=== PATIENT | female | born 1960 | race Caucasian/White ===

== ENCOUNTER 2020-06-04 01:38 | Outpatient (CLI) | payer OTHER, SELFPAY ==
--- NOTE | 2020-06-04 | DI.MAMMO_ITS ---
EXAM: MG MAMMO SCREENING CLINICAL HISTORY: SCREENING FOR BREAST CANCER Z12.39 TECHNIQUE: Bilateral full field digital CC and MLO mammographic images were obtained with 3D tomosyn thesis and utilizing computer aided detection (CAD). COMPARISON: None. This is a baseline examination. FINDINGS: Masses/Architectural Distortion: None seen. Microcalcifications: No suspicious pleomorphic-type are seen. Skin Thickening/Nipple Retraction: None. IMPRESSION: 1. No significant interval change with no specific features of malignancy noted. 2. Unless there is more urgent need, screening mammography is recommended, as per [employer] guidelines. BI-RADS Category 1 - Negative Breast Density - Category B - Scattered areas of fibroglandular density Breast density category C or D implies that the patient has dense breast tissue. Dense breast tissue is very common and is not abnormal but dense breast tissue can make it harder to find cancer on a ma mmogram. Also, dense breast tissue may increase their breast cancer risk. This information about the result of the mammogram report was provided to the patient to raise their awareness. Use this report when you speak with the patient about their risks for breast cancer, which includes their family hist ory. At that time, you may recommend for more screening tests (Ultrasound or MRI) as they might be us eful based on their risk. A negative radiographic report should not delay biopsy if a dominant or clinically suspicious mass is present. Up to ten percent of cancers are not identified on mammography. A negative report may reinforce clinical impression. Adenosis and dense breasts may obscure an underlying neoplasm. False positive reports average 6 to 10%. Patient will receive a letter notifying them of these results.
== END 2020-06-04 01:39 | disposition home or self-care (01) ==
LOC: DI 01:38
PROVIDERS: PCP Nurse Practitioner Family; Visit Provider Nurse Practitioner Family
DX: Z12.31 Encounter for screening mammogram for malignant neoplasm of breast (principal)
CPT/HCPCS: 77063; 77067

== ENCOUNTER 2021-03-22 13:21 | Outpatient (REF) | payer BC, SELFPAY ==
--- NOTE | 2021-03-22 11:30 | PAPFT_PTH ---
PATIENT: Alfredito Chandra LOC: [facility]#:[id number] AGE/SX: 61/F ROOM: RE03/22/[address]: Fatmata Damon : 1960 BED: DIS: 03/22/2021 SPEC #: [id number] RECD: 03/25/21 13:03 STATUS: [place] REAlfonso #: [id number] SUNIL: 03/22/21 11:[address]: Fatmata Damon DEPT: [facility] Cytology RECD BY: Komal Pratt Tissues: 1 - CX/ENDOCX FOR PAP SMEARS Procedures: PAP THIN PREP/UVM Screening HPV DNA PROBE Comments: [id number]
[2021-03-22 17:29] LABS: Calculated LDL 142 mg/dL (<100); Cholesterol 236 mg/dL (<200); HDL Cholesterol 76 mg/dL (40-60); Triglyceride 91 mg/dL (<150)
[2021-03-22 18:04] LABS: Hemoglobin A1C 5.4 % (<5.7)
[2021-03-22 22:37] LABS: T3,Free 2.9 pg/mL (2.8-5.3)
== END 2021-03-22 13:22 | disposition home or self-care (01) ==
LOC: NCHCN 13:21
PROVIDERS: PCP Nurse Practitioner Family; Visit Provider Nurse Practitioner Family
DX: I83.90 Asymptomatic varicose veins of unspecified lower extremity (principal); K80.20 Calculus of gallbladder without cholecystitis without obstruction; N39.3 Stress incontinence (female) (male); F33.0 Major depressive disorder, recurrent, mild; Z80.0 Family history of malignant neoplasm of digestive organs; Z12.4 Encounter for screening for malignant neoplasm of cervix; Z11.51 Encounter for screening for human papillomavirus (HPV); R87.610 Atypical squamous cells of undetermined significance on cytologic smear of cervix (ASC-US); E66.9 Obesity, unspecified; Z00.00 Encounter for general adult medical examination without abnormal findings
CPT/HCPCS: 80061; 88142; 83036; 84481; 87624

== ENCOUNTER 2022-05-02 15:51 | Outpatient (REF) | payer OTHER, SELFPAY ==
--- NOTE | 2022-05-02 14:15 | PAPFT_PTH ---
PATIENT: Alfredito Chandra LOC: [facility]#:[id number] AGE/SX: 62/F ROOM: RE05/02/[address]: Fatmata Damon : 1960 BED: DIS: 05/02/2022 SPEC #: [id number] RECD: 05/05/22 12:58 STATUS: [place] REAlfonso #: [id number] SUNIL: 05/02/22 14:[address]: Fatmata Damon DEPT: [facility] Cytology RECD BY: Komal Pratt Tissues: 1 - CX/ENDOCX FOR PAP SMEARS Procedures: PAP THIN PREP/UVM Screening HPV DNA PROBE Comments: [id number]
[2022-05-02 21:43] LABS: Calculated LDL 134 mg/dL (<100); Cholesterol 236 mg/dL (<200); HDL Cholesterol 63 mg/dL (40-60); TSH (W/Ref FT4) 1.62 uIU/mL (0.36-3.74); Triglyceride 196 mg/dL (<150)
== END 2022-05-02 15:52 | disposition home or self-care (01) ==
LOC: NCHCN 15:51
PROVIDERS: PCP Nurse Practitioner Family; Visit Provider Nurse Practitioner Family
DX: Z00.00 Encounter for general adult medical examination without abnormal findings (principal); F34.1 Dysthymic disorder; F33.0 Major depressive disorder, recurrent, mild; E66.8 Other obesity; Z12.4 Encounter for screening for malignant neoplasm of cervix; R87.610 Atypical squamous cells of undetermined significance on cytologic smear of cervix (ASC-US); Z11.51 Encounter for screening for human papillomavirus (HPV)
CPT/HCPCS: 80061; 88142; 84443; 87624

== ENCOUNTER 2022-06-20 01:01 | Outpatient (CLI) | payer OTHER, SELFPAY ==
--- NOTE | 2022-06-20 07:50 | DI.MAMMO_ITS ---
Exam(s) MAMMO SCREENING EXAM: MAMMO SCREENING CLINICAL HISTORY: SCREENING, Z12.39; [facility], Z00.00 TECHNIQUE: Mammograms were interpreted according to the usual protocol including computer analysis w [email or web address] CAD system, tomosynthesis and C-view imaging. COMPARISON: 2020 FINDINGS: The breasts are composed of scattered fibroglandular densities, Breast Density category B. No suspicious masses or suspicious microcalcifications are seen. No skin thickening or abnormal axillary lymph nodes are seen. There has been no significant change from prior exams. IMPRESSION: BI-RADS Category 1, Negative mammogram Yearly screening mammography is recommended. Breast Density - Category B, scattered fibroglandular densities. A negative radiographic report should not delay biopsy if a dominant or clinically suspicious mass is present. Up to ten percent of cancers are not identified on mammography. A negative report may reinforce clinical impression. Adenosis and dense breasts may obscure an underlying neoplasm. False positive reports average 6 to 10%. Patient will receive a letter notifying them of these results.
== END 2022-06-20 01:21 ==
LOC: DI 01:01
PROVIDERS: PCP Nurse Practitioner Family; Visit Provider Nurse Practitioner Family
DX: Z12.31 Encounter for screening mammogram for malignant neoplasm of breast (principal); Z00.00 Encounter for general adult medical examination without abnormal findings
CPT/HCPCS: 77063; 77067

== ENCOUNTER 2023-05-01 13:36 | Outpatient (CLI) | payer OTHER, SELFPAY ==
[2023-05-01 16:29] LABS: TSH (W/Ref FT4) 2.67 uIU/mL (0.36-3.74)
== END 2023-05-01 13:37 | disposition home or self-care (01) ==
LOC: LBO 13:45
PROVIDERS: PCP Nurse Practitioner Family; Visit Provider Nurse Practitioner Family
DX: F33.8 Other recurrent depressive disorders (principal); Z13.29 Encounter for screening for other suspected endocrine disorder
CPT/HCPCS: 36415; 84443

== ENCOUNTER 2024-07-05 12:07 | Outpatient (CLI) | payer OTHER, SELFPAY ==
[2024-07-05 08:18] LABS: ALT 27 U/L (14-59); AST 20 U/L (15-37); Albumin 3.6 g/dL (3.4-5.0); Alkaline Phosphatase 62 U/L (46-116); BUN 20 mg/dL (7-18); Bilirubin, Total 0.7 mg/dL (0.2-1.0); CREATININE 0.8 mg/dL (0.55-1.02); Calcium 9.7 mg/dL (8.5-10.1); Calculated LDL 127 mg/dL (<100); Chloride 108 mmol/L (98-107); Cholesterol 209 mg/dL (<200); Estimated GFR 83.26 (mL/min/1.73m2); Glucose 91 mg/dL (74-106); HDL Cholesterol 66 mg/dL (>or=50); Potassium 4.3 mmol/L (3.5-5.1); Sodium 143 mmol/L (136-145); TSH (W/Ref FT4) 2.34 uIU/mL (0.36-3.74); Total Protein 6.8 g/dL (6.4-8.2); Triglyceride 83 mg/dL (<150)
== END 2024-07-05 12:08 | disposition home or self-care (01) ==
LOC: LBO 12:07
PROVIDERS: PCP Nurse Practitioner Family; Visit Provider Internal Medicine
DX: E78.5 Hyperlipidemia, unspecified (principal); F34.1 Dysthymic disorder; Z00.00 Encounter for general adult medical examination without abnormal findings
CPT/HCPCS: 36415; 80053; 80061; 84443

== ENCOUNTER 2025-02-09 05:38 | Outpatient (CLI) | payer OTHER, SELFPAY ==
--- NOTE | 2025-02-09 | DI.MAMMO_ITS ---
Exam(s) MAMMO SCREENING EXAM: MAMMO SCREENING CLINICAL HISTORY: SCREENING MAMMO Z12.31 TECHNIQUE: Mammograms were interpreted according to the usual protocol including computer analysis with CAD system, tomosynthesis and C-view imaging. COMPARISON: 2020 and 2022 FINDINGS: The breasts are composed of scattered fibroglandular densities, Breast Density category B. No suspicious masses or suspicious microcalcifications are seen. No skin thickening or abnormal axillary lymph nodes are seen. There has been no significant change from prior exams. IMPRESSION: BI-RADS Category 1, Negative mammogram Yearly screening mammography is recommended. Breast Density - Category B - There are scattered areas of fibroglandular density. Breast density Category C or D implies that the patient has dense breast tissue. Dense breast tissue can make it harder to find cancer on a mammogram. Dense breast tissue is also associated with an increased risk of breast cancer. This information about the result of the mammogram report was provided to the patient to raise their awareness. Use this report when you speak with the patient about their risks for breast cancer, which includes their family history. At that time, you may recommend additional screening tests (Ultrasound or MRI) as these tests may add significant information. A negative radiographic report should not delay biopsy if a dominant or clinically suspicious mass is present. Up to ten percent of cancers are not identified on mammography. A negative report may reinforce clinical impression. Adenosis and dense breasts may obscure an underlying neoplasm. False positive reports average 6 to 10%. Patient will receive a letter notifying them of these results.
== END 2025-02-09 05:58 ==
PROVIDERS: PCP Nurse Practitioner Family; Visit Provider Internal Medicine
DX: Z12.31 Encounter for screening mammogram for malignant neoplasm of breast (principal); R92.323 Mammographic fibroglandular density, bilateral breasts
CPT/HCPCS: 77063; 77067